=== PATIENT | male | born 1975 | race Hispanic/Latino ===

== ENCOUNTER 2018-02-01 19:58 | Inpatient (IN) | payer SELFPAY ==
[2018-02-01 21:22] LABS: #Basophils 0.1 thou/uL (0.0-0.2); #Lymphocytes 1.8 thou/uL (1.20-3.40); #Monocytes 1.1 thou/uL (0.11-0.59); #Neutrophils 9.3 thou/uL (1.40-6.50); %Basophils 0.4 % (0.0-1.0); %Eosinophils 0.4 % (0.0-10.0); %Lymphocytes 14.6 % (21.0-51.0); %Monocytes 8.8 % (0.0-10.0); %Neutrophils 75.8 % (42.0-75.0); Mean Corpuscular HGB CONC 33.5 g/dL (32.0-36.0); Mean Corpuscular Hemoglobin 27.9 pg (27.0-31.0); Mean Corpuscular Volume 83.4 fl (80.0-94.0); Mean Platelet Volume 8.4 fL (7.4-10.4); Platelet Count 261 thou/uL (130-400); RBC Distribution Width 11.6 % (11.5-14.5); Red Blood Cell (RBC) Count 4.67 mill/uL (4.70-6.10); White Blood Cell (WBC) Count 12.3 thou/uL (4.8-10.8)
[2018-02-01] MEDS ORDERED: Morphine 4 MG/ML VIAL ONE (21:40)
[2018-02-01] MEDS ORDERED: Ondansetron ODT 4 MG TAB ONE (21:40)
[2018-02-01] MEDS ORDERED: Ibuprofen 200 MG TAB ONE (21:42)
[2018-02-01] MEDS ORDERED: Acetaminophen 500 MG TAB ONE (21:42)
[2018-02-01 21:43] LABS: ALT (SGPT) 35 U/L (8-55); AST (SGOT) 21 U/L (5-34); Albumin 3.9 g/dL (3.5-5.0); Alkaline Phosphatase 181 U/L (40-150); Anion Gap 14 mmol/L (10-20); BUN (Urea Nitrogen) 14 mg/dL (8.9-20.6); Bilirubin, Total 1.2 mg/dL (0.2-1.2); Calc. Creatinine Clearance 0 mL/min (70-130); Calcium 9.9 mg/dL (7.8-10.44); Carbon Dioxide 28 mmol/L (22-29); Chloride 97 mmol/L (98-107); Estimated GFR-MDRD 77; Glucose 127 mg/dL (70-105); Potassium 3.4 mmol/L (3.5-5.1); Protein, Total 7.9 g/dL (6.0-8.3); Sodium 136 mmol/L (136-145)
[2018-02-01 21:46] LABS: CKMB 0.6 ng/mL (0-6.6); Troponin I Less than 0.010 ng/mL (< 0.028)
[2018-02-01 21:58] LABS: Lactic Acid 1.6 mmol/L (0.5-2.2)
[2018-02-01 22:00] LABS: Bilirubin Negative (Negative); Blood, Urine Negative (Negative); Clarity CLEAR (Clear); Glucose, Urine (Dipstick) Negative (Negative); Leukocyte Trace (Negative); Nitrite Negative (Negative); Protein, Urine (Dipstick) 30 mg/dL (Neg-Trace); Specific Gravity, Urine 1.019 (1.002-1.036); Urobilinogen > or = 8.0 mg/dL (0.2-1.0); pH, Urine 7.5 (5.0-9.0)
[2018-02-01 22:02] LABS: Bacteria/HPF None Seen HPF (None Seen); Hyaline Casts/LPF 0-3 HYALINE CAST LPF (0-3 Hyaline); Pathc Cast-AUWi Flag 0.14 (0-2.49); RBC/HPF 0-3 HPF (0-3); Squamous Epithelial 0-3 HPF (0-3); WBC/HPF 0-3 HPF (0-3)
[2018-02-01] MEDS ORDERED: Piperacillin/Tazobactam 4.5 GM VIAL ONE (22:17)
--- NOTE | 2018-02-01 22:23 | RAD ---
PORTABLE CHEST ONE VIEW: 02/01/18 at 9:53 p.m. HISTORY: Cough with streaks of blood. FINDINGS: The heart size is normal. There is consolidation in the right lower lung. No pneumothorax or pleural effusions are seen. IMPRESSION: Right sided pneumonia. POS: [facility]
[2018-02-01] MEDS ORDERED: guaiFENesin 100 MG/5 ML UDCUP PO PRN (23:35)
[2018-02-01] MEDS ORDERED: Sodium Chloride 0.9% 1,000 ML IV SCH (23:45)
[2018-02-02] MEDS: Sodium Chloride 0.9% 1,000 ML IV SCH ×3 (00:38→23:24)
[2018-02-02 01:04] VITALS: BMI 31.2
[2018-02-02 02:17] LABS: Legionella Urinary Ag Negative (Negative); Strep pneumo Urine Ag NEGATIVE (NEGATIVE)
--- NOTE | 2018-02-02 03:00 | HP ---
DATE OF ADMISSION: 02/01/2018 PRIMARY CARE PHYSICIAN: Molly PCP. CHIEF COMPLAINT: Shortness of breath. HISTORY OF PRESENT ILLNESS: Patient is a very pleasant 42-year-old male with no significant past med ical history who presents to the hospital, complaints of worsening shortness of breath and lightheade dness. Patient stated that for the past few days, he has been having nausea, vomiting, and decreased appetite. Patient stated that he also has been having cough for the past 2-3 weeks. Patient stated that his temperature at home was 100.9. Patient states that he has been taking [id number] med ications without any relief. Patient stated that he has not been able to eat or drink very much. To night his symptoms worsened, worsening nausea, vomiting, and some lightheadedness which concerned him and so he came to the ER for further evaluations. PAST MEDICAL HISTORY: Denies any significant past medical history. MEDICATIONS: He takes none. ALLERGIES: He has no known drug allergies. FAMILY HISTORY: He has got no significant family history of heart disease or diabetes. SOCIAL HISTORY: He drinks occasionally some alcohol, denies any drugs or smoking history. PAST SURGICAL HISTORY: Denies any surgical history. REVIEW OF SYSTEMS: The following complete review of systems was all negative except for the ones men tioned above in the HPI: Constitutional: Weight loss or gain, ability to conduct usual activities. Skin: Rash, itching. Eyes: Double vision, pain. ENT/Mouth: Nose bleeding, neck stiffness, pain, tenderness. Cardiovascular: Palpitations, dyspnea on exertion, orthopnea. Respiratory: Shortness of breath, wheezing, cough, hemoptysis, fever, or night sweats. Gastrointestinal: Poor appetite, a bdominal pain, heartburn, nausea, vomiting, constipation, or diarrhea. Genitourinary: Urgency, freq uency, dysuria, nocturia. Musculoskeletal: Pain, swelling. Neurologic/Psychiatric: Anxiety, depre ssion. Allergy/Immunologic: Skin rash, bleeding tendency. PHYSICAL EXAMINATION: VITAL SIGNS: Temperature of 99.8, however, there was one temperature of 102.4, blood pressure 109/55 , respirations are 16, 93% on room air, 92 pulse. GENERAL: He is awake, alert, oriented x3, does not appear in distress. CARDIOVASCULAR: S1, S2 present. No murmurs, rubs, or gallops. This patient does have reproducible chest pain upon pushing his right lower ribcage area. ABDOMEN: Soft, nontender. Bowel sounds are present x2. LUNGS: Clear to auscultation. No rhonchi or wheezes noted. EXTREMITIES: No pitting edema. Pedal pulses are present x2. LABORATORY DATA: Are as the following, he has a CBC indicates count of 12.3, hemoglobin of 13.0, hem atocrit of 38.9. No bands are noted. His BMP: Sodium of 136, potassium of 3.4, chloride of 97, BUN of 14, creatinine 1.06 and his UA had indicated high-protein and trace leukocytes. Chest x-ray appe ars to have his current right-sided pneumonia. ASSESSMENT AND PLAN: Patient is a very pleasant 42-year-old male who comes to the hospital with mult iple complaints. 1. Right-sided pneumonia. We will start patient on antibiotics for community-acquired pneumonia, Le vaquin. We will start patient on some DuoNebs. We will give patient's some cough suppressant. Guillermina ent did state that he took 3 days of amoxicillin when he was at home, which did not really help him v michelle much. We will check Strep pneumo urine antigen and Legionella urine antigen. Continue to monito r. 2. Sepsis, most likely secondary to problem #1. We will start the patient on gentle hydration. We will give a normal saline 1-liter bolus and continue to monitor. 3. Mildly elevated leukocytosis, most likely secondary to his #1 problem. 4. Deep venous thrombosis prophylaxis. We will put patient on subcutaneous heparin.
[2018-02-02 07:15] LABS: #Eosinphils 0.1 thou/uL (0.0-0.7); #Lymphocytes 1.8 thou/uL (1.20-3.40); #Monocytes 1.2 thou/uL (0.11-0.59); #Neutrophils 7.4 thou/uL (1.40-6.50); %Basophils 0.3 % (0.0-1.0); %Eosinophils 1.3 % (0.0-10.0); %Lymphocytes 16.6 % (21.0-51.0); %Monocytes 11.6 % (0.0-10.0); %Neutrophils 70.1 % (42.0-75.0); Hemoglobin 11.9 g/dL (14.0-18.0); Mean Corpuscular HGB CONC 33.8 g/dL (32.0-36.0); Mean Corpuscular Hemoglobin 28.2 pg (27.0-31.0); Mean Corpuscular Volume 83.5 fl (80.0-94.0); Mean Platelet Volume 8.1 fL (7.4-10.4); Platelet Count 221 thou/uL (130-400); RBC Distribution Width 11.6 % (11.5-14.5); White Blood Cell (WBC) Count 10.6 thou/uL (4.8-10.8)
[2018-02-02 07:25] LABS: Anion Gap 11 mmol/L (10-20); BUN (Urea Nitrogen) 12 mg/dL (8.9-20.6); Calc. Creatinine Clearance 117 mL/min (70-130); Calcium 8.5 mg/dL (7.8-10.44); Carbon Dioxide 27 mmol/L (22-29); Chloride 106 mmol/L (98-107); Estimated GFR-MDRD Greater than 90; Glucose 120 mg/dL (70-105); Potassium 3.7 mmol/L (3.5-5.1); Sodium 140 mmol/L (136-145)
[2018-02-02] MEDS: Heparin 5,000 UNITS/ML VIAL SC SCH ×3 (08:32→20:07)
[2018-02-02] MEDS: Famotidine 40 MG/4 ML VIAL SLOW IVP SCH ×2 (08:32→20:06)
--- NOTE | 2018-02-02 11:07 | PDOC.PN ---
- Subjective Encounter Start Date: 02/02/18 Encounter Start Time: 11:06 Patient seen and examined, states he feels better but still has some pain in the right mid chest region axillary line. No other issues or complaints, all questions answered. - Objective Resuscitation Status: Resuscitation Status FULL:Full Resuscitation Vital Signs & Weight: Vital Signs (12 hours) Temp Pulse Resp BP Pulse Ox 02/02/18 08:00 98.0 F 76 16 98 02/02/18 07:33 74 16 98 02/02/18 07:00 98.0 F 76 16 121/61 98 02/02/18 02:25 78 16 100 02/02/18 01:13 98.4 F 80 20 99 02/02/18 00:08 98.4 F 80 20 109/64 99 Weight Weight 171 lb I&O: 02/01/18 02/02/18 02/03/18 06:59 06:59 06:59 Intake Total 543 Output Total 750 Balance -207 Result Diagrams: 02/02/18 06:41 02/02/18 06:41 Phys Exam - Physical Examination Constitutional: NAD HEENT: PERRLA, moist MMs, sclera anicteric Neck: no nodes, no JVD, supple Respiratory: no wheezing, no rales, no rhonchi Cardiovascular: RRR, no significant murmur, no rub Gastrointestinal: soft, non-tender, no distention Musculoskeletal: no edema, pulses present Neurological: non-focal, normal sensation Dx/Plan (1) Pneumonia involving right lung Code(s): J18.9 - PNEUMONIA, UNSPECIFIED ORGANISM Status: Acute (2) Acute renal failure Status: Acute (3) Rhabdomyolysis Code(s): M62.82 - RHABDOMYOLYSIS Status: Acute - Plan * renal function improving * cont abx and IVFs for now * repeat labs in AM * if renal function improving and patient feeling better will likely DC patient in AM * case and plan d/w [facility], in panamanian he understands and agrees with this plan
[2018-02-02] MEDS: Diabetic Tussin 200 MG/10 ML UDCUP PO PRN ×3 (13:25→20:21)
[2018-02-02] MEDS: Acetaminophen 325 MG TAB PO PRN ×2 (15:04→20:07)
[2018-02-03] MEDS: Diabetic Tussin 200 MG/10 ML UDCUP PO PRN ×4 (02:28→23:50)
[2018-02-03] MEDS: Heparin 5,000 UNITS/ML VIAL SC SCH ×3 (09:05→21:08)
[2018-02-03] MEDS: Famotidine 40 MG/4 ML VIAL SLOW IVP SCH ×2 (09:18→21:07)
--- NOTE | 2018-02-03 10:02 | RAD ---
PORTABLE CHEST 1 VIEW: Date: 02/03/18 Time: 0918 hours HISTORY: Pneumonia. FINDINGS: Comparison made with exam of 02/01/18. There is interval worsening of the consolidation in the right lower lung since the previous study. Th e heart size is normal. The left lung is clear. IMPRESSION: Right side pneumonia. POS: [facility]
--- NOTE | 2018-02-03 11:42 | PDOC.PN ---
- Subjective Encounter Start Date: 02/03/18 Encounter Start Time: 11:40 Patient seen and examined, states he has improvement in his breathing but his pain is now not just right axxilary line but also epigastric, no other issues or complaints. Family at bedside, all questions answered. - Objective Resuscitation Status: Resuscitation Status FULL:Full Resuscitation Vital Signs & Weight: Vital Signs (12 hours) Temp Pulse Resp BP Pulse Ox 02/03/18 10:04 85 18 97 02/03/18 08:00 99.3 F 85 18 97 02/03/18 07:49 99.3 F 85 20 115/55 L 95 02/03/18 05:54 88 14 97 02/03/18 02:11 82 16 98 02/03/18 01:52 96 Weight Weight 171 lb I&O: 02/02/18 02/03/18 02/04/18 06:59 06:59 06:59 Intake Total 543 3221 240 Output Total 750 Balance -207 3221 240 Result Diagrams: 02/02/18 06:41 02/02/18 06:41 Phys Exam - Physical Examination Constitutional: NAD HEENT: PERRLA, moist MMs, sclera anicteric Neck: no nodes, no JVD, supple decreased breath sounds righ tmiddle lobe no respiratory distress Cardiovascular: RRR, no significant murmur, no rub Gastrointestinal: soft, non-tender, no distention Musculoskeletal: no edema, pulses present Dx/Plan (1) Pneumonia involving right lung Code(s): J18.9 - PNEUMONIA, UNSPECIFIED ORGANISM Status: Acute (2) Acute renal failure Status: Acute (3) Rhabdomyolysis Code(s): M62.82 - RHABDOMYOLYSIS Status: Acute - Plan * bacillus on culture, repeat culture * cont levaquin * CXR shows worsening pneumonia, will consult pulmonary for assistance * continue current plan of care with no changes for now * will obtain CT scan of Chest as well * case and plan d/w patient at [facility], in [place], they understand and agree with this plan
--- NOTE | 2018-02-03 12:58 | CON ---
DATE OF CONSULTATION: 02/03/2018 HISTORY: A 42-year-old gentleman who admitted on 02/01/2018, I was consulted 02/04/20 18 regarding right-sided pneumonia. He speaks no Azeri. His is at the bedside and states he has been having cough for the last several weeks, fever and chills. Sputum is relatively clear. Thi s morning he is coughing some discolored sputum. Apparently he is a nonsmoker, no alcohol abuse, no tobacco abuse, no substance abuse. PAST MEDICAL HISTORY: Unremarkable for any major medical problems, diabetes, hypertension. PAST SURGICAL HISTORY: None. SOCIAL HISTORY: He does construction work. CHRONIC MEDICATIONS: None. ALLERGIES: None. FAMILY HISTORY: Unremarkable. No pets. REVIEW OF SYSTEMS: Ten point negative. PHYSICAL EXAMINATION: VITAL SIGNS: Sats 97% on room air, respiration 18, temperature 99.3, pulse 85, blood pressure 120/55 . CHEST: Chest reveals decreased breath sounds, no wheezing or crackles. CARDIAC: Normal S1, S2, no gallops. ABDOMEN: Soft, without masses. NEUROLOGIC: Unremarkable. EXTREMITIES: No edema. LABORATORY: Blood culture, basilar species, not Anthrax, probably is a contamination. His chest x-ray shows a right mid chest pneumonia. I do not see obvious pleural effusion. IMPRESSION: Community-acquired pneumonia in a nonsmoker. PLAN: Levaquin should be more than adequate. I am going to try and get a sputum culture if possible . I will follow. If he becomes afebrile, suggest switching him over to oral antibiotics. This is a 70 minute consultation, which 50% time spent in direct patient care.
[2018-02-03] MEDS ORDERED: Iopamidol 370 76% 100 ML VIAL ONE (14:12)
--- NOTE | 2018-02-03 14:52 | CT ---
CT THORAX WITH IV CONTRAST: Indication: Abnormal chest radiograph. Evaluate for pneumonia. Comparison: Prior radiograph dated 02-03-18. FINDINGS: There is prominent airspace consolidation seen within the right middle lobe. There is debris seen wit hin the right middle lobe bronchi. There is an enlarged right infrahilar lymph node measuring 1.3 cm. There is a small right pleural effusion. There is right basilar atelectasis. There are patchy reticu lar and ground glass opacities within the superior segment of the right lower lobe. Left lung is hayley r. No suspicious osseous lesion is identified. IMPRESSION: 1. Prominent consolidation in the right middle lobe suspicious for pneumonia. There is some debris pr esent within the right middle lobe bronchus. It is difficult to exclude the presence of a right hilar mass due to the extent of the consolidation. No visible enhancing mass is grossly evident. There is an enlarged right infrahilar lymph node measuring up to 1.3 cm which may be reactive in nature. There is additional ground glass and reticular air opacity seen within the superior segment of the right l ower lobe, suspicious for an additional area of infection. Followup CT after antibiotic therapy liam mmended to document resolution. 2. Small right sided effusion with right basilar atelectasis. 3. Multiple bilateral renal cysts. 4. Calcified granuloma within the spleen likely related to prior granulomatous disease. POS: [facility]
[2018-02-03] MEDS: Sodium Chloride 0.9% 1,000 ML IV SCH (16:48)
[2018-02-03] MEDS: Temazepam 15 MG CAP PO PRN (22:21)
[2018-02-04] MEDS: Sodium Chloride 0.9% 1,000 ML IV SCH ×2 (05:25→20:27)
[2018-02-04] MEDS: Diabetic Tussin 200 MG/10 ML UDCUP PO PRN (08:10)
[2018-02-04] MEDS: Heparin 5,000 UNITS/ML VIAL SC SCH ×3 (08:11→20:27)
--- NOTE | 2018-02-04 10:04 | PRG ---
DATE OF SERVICE: 02/04/2018 This morning he is better, he is coughing, but no productive sputum. PHYSICAL EXAMINATION: VITAL SIGNS: Sats 100% room air, temperature is still 99, pulse 88, respirations 14, blood pressure 122/62. CHEST: Chest reveals decreased breath sounds right lung. CARDIAC: Normal S1-S2. No gallops. ABDOMEN: Soft. No masses. IMPRESSION: Right middle lobe pneumonia, small pleural effusion, community-acquired, probably Strept ococcus pneumonia. PLAN: May continue IV antibiotics for another 24 hours. Once he is afebrile switch him over to oral Levaquin. Follow chest x-ray in a couple of days. Obviously, if the effusion gets larger, may consider a thoracentesis.
--- NOTE | 2018-02-04 11:43 | PDOC.PN ---
- Subjective Encounter Start Date: 02/04/18 Encounter Start Time: 11:42 Patient seen and examined, continues ot have bouts of dry cough but better than before, no other issues or complaints. - Objective Resuscitation Status: Resuscitation Status FULL:Full Resuscitation Vital Signs & Weight: Vital Signs (12 hours) Temp Pulse Resp BP Pulse Ox 02/04/18 09:25 80 14 96 02/04/18 08:00 99.1 F 80 14 93 L 02/04/18 07:37 99.1 F 79 18 123/62 93 L 02/04/18 05:57 91 16 97 02/04/18 01:50 87 18 96 Weight Weight 171 lb I&O: 02/03/18 02/04/18 02/05/18 06:59 06:59 06:59 Intake Total 3221 660 Balance 3221 660 Result Diagrams: 02/02/18 06:41 02/02/18 06:41 Phys Exam - Physical Examination Constitutional: NAD HEENT: PERRLA, moist MMs, sclera anicteric Neck: no nodes, no JVD, supple Respiratory: no wheezing, no rales, no rhonchi Cardiovascular: RRR, no significant murmur, no rub Gastrointestinal: soft, non-tender, no distention Musculoskeletal: no edema, pulses present Neurological: non-focal, normal sensation, moves all 4 limbs Dx/Plan (1) Pneumonia involving right lung Code(s): J18.9 - PNEUMONIA, UNSPECIFIED ORGANISM Status: Acute (2) Acute renal failure Status: Acute (3) Rhabdomyolysis Code(s): M62.82 - RHABDOMYOLYSIS Status: Acute - Plan * cont abx * sputum culture possibly if obtainable * labs improving * possible DC in AM if patient feeling well * tessalon pearls for cough * case and plan d/w patient in hungarian, he understands and agrees with cosme prescott
[2018-02-04] MEDS: Benzonatate 100 MG CAP PO PRN ×2 (12:11→20:26)
[2018-02-04] MEDS: Famotidine 40 MG/4 ML VIAL SLOW IVP SCH ×2 (12:12→20:27)
[2018-02-04] MEDS: Temazepam 15 MG CAP PO PRN (20:31)
[2018-02-04] MEDS: Acetaminophen 325 MG TAB PO PRN (21:26)
[2018-02-05] MEDS: Benzonatate 100 MG CAP PO PRN ×3 (04:00→20:25)
[2018-02-05] MEDS: Sodium Chloride 0.9% 1,000 ML IV SCH (08:20)
[2018-02-05] MEDS: Heparin 5,000 UNITS/ML VIAL SC SCH ×3 (08:21→20:29)
[2018-02-05] MEDS: Diabetic Tussin 200 MG/10 ML UDCUP PO PRN ×2 (08:23→18:00)
--- NOTE | 2018-02-05 08:48 | PRG ---
DATE OF SERVICE: 02/05/2018 This morning he is awake, alert, responsive. PHYSICAL EXAMINATION: VITAL SIGNS: Temperature 97, pulse is 86, respirations 16, O2 sats 93% on room air, much better. Bl ood pressure 152/58. CHEST: No cough. ____ negative. Chest revealed decreased breath sounds in the right lung. Left tabitha ng unremarkable. CARDIAC: Normal S1, S2. ABDOMEN: Soft, no masses. IMPRESSION: 1. Right-sided pneumonia, community acquired. 2. Small pleural effusion. PLAN: He appears to have improved substantially. I will switch him over to oral antibiotics. X-ray shows resolution of the pneumonia. Probably could be discharged home tomorrow on oral antibiotics.
[2018-02-05] MEDS: Temazepam 15 MG CAP PO PRN (20:25)
--- NOTE | 2018-02-05 21:10 | PDOC.PN ---
- Subjective Encounter Start Date: 02/05/18 Encounter Start Time: 11:00 Patient seen and examined for Sepsis/Pneumonia. Productive cough +. No overnight events - Objective Resuscitation Status: Resuscitation Status FULL:Full Resuscitation MAR Reviewed: Yes Vital Signs & Weight: Vital Signs (12 hours) Temp Pulse Resp BP Pulse Ox 02/05/18 20:00 98.2 F 95 18 127/74 93 L 02/05/18 19:12 73 16 96 02/05/18 11:41 85 16 96 Weight Weight 171 lb I&O: 02/04/18 02/05/18 02/06/18 06:59 06:59 06:59 Intake Total 660 1500 1720 Output Total 200 Balance 660 1500 1520 Result Diagrams: 02/02/18 06:41 02/02/18 06:41 Radiology Reviewed by me: Yes (CT chest - Rt sided Pneumonia) Phys Exam - Physical Examination Intermittent coughing spells Respiratory: wheezing present Rt sided rales with dec AE, Scat rhonchi Cardiovascular: RRR, no rub no heaves/pulsation Gastrointestinal: soft, non-tender, no distention, positive bowel sounds Musculoskeletal: no edema Neurological: non-focal, moves all 4 limbs Psychiatric: normal affect, A&O x 3 Dx/Plan - Plan continue antibiotics, DVT proph w/SCDs IMPRESSION: 1. Sepsis due to pneumonia. 2. Pleural effusion 3. Obesity BMI 31.3 4. Leukocytosis due to #1 PLAN: * Cont Levaquin * Repeat CXR in AM * DC planning Review of Systems - Review of Systems Cardiovascular: negative: chest pain, palpitations, orthopnea, paroxysmal nocturnal dyspnea, edema, light headedness, other Gastrointestinal: negative: Nausea, Vomiting, Abdominal Pain, Diarrhea, Constipation, Melena, Hematochezia, Other - Medications/Allergies Allergies/Adverse Reactions: Allergies Allergy/AdvReac Type Severity Reaction Status Date / Time No Known Drug Allergies Allergy Verified 02/02/18 01:12 Medications: Current Medications Acetaminophen (Tylenol) 650 mg PO Q4H PRN PRN Reason: Headache/Fever or Pain Last Admin: 02/04/18 21:26 Dose: 650 mg Albuterol/Ipratropium (Duoneb) 3 ml NEB TID-RT TISH Last Admin: 02/05/18 19:12 Dose: 3 ml Benzonatate (Tessalon) 100 mg PO TIDPRN PRN PRN Reason: Cough Last Admin: 02/05/18 20:25 Dose: 100 mg Guaifenesin (Robitussin Sf) 200 mg PO Q4H PRN PRN Reason: Cough Last Admin: 02/05/18 18:00 Dose: 200 mg Heparin Sodium (Porcine) (Heparin) 5,000 units SC TID TISH Last Admin: 02/05/18 20:29 Dose: 5,000 units Levofloxacin (Levaquin) 750 mg PO 0600 TISH Stop: 02/13/18 06:01 Sodium Chloride (Flush - Normal Saline) 10 ml IVF Q12HR TISH Last Admin: 02/05/18 08:22 Dose: 10 ml Sodium Chloride (Flush - Normal Saline) 10 ml IVF PRN PRN PRN Reason: Saline Flush Temazepam (Restoril) 15 mg PO HS PRN PRN Reason: Insomnia Last Admin: 02/05/18 20:25 Dose: 15 mg
[2018-02-06] MEDS: Benzonatate 100 MG CAP PO PRN (05:29)
[2018-02-06] MEDS: Acetaminophen 325 MG TAB PO PRN (05:29)
--- NOTE | 2018-02-06 08:13 | RAD ---
TWO VIEW CHEST: Comparison: 02-03-18 Clinical history: Pneumonia. FINDINGS: Re-demonstration of moderate sized region of opacification at the right middle lobe. Finding demonstr ates wedge shaped configuration compatible with lobar collapse of the right middle lobe which raises suspicion for a central obstructing lesion. No obvious effusion. No discrete pneumothorax. Cardiac si lhouette is within normal limits in size. IMPRESSION: Right middle lobe collapse, which raises suspicion for a central obstructing lesion. Recommend follow up with bronchoscopy as well as continued imaging follow up. Code T POS: [facility]
[2018-02-06] MEDS: Diabetic Tussin 200 MG/10 ML UDCUP PO PRN (08:53)
[2018-02-06] MEDS: Heparin 5,000 UNITS/ML VIAL SC SCH (08:53)
--- NOTE | 2018-02-06 09:17 | PRG ---
DATE OF SERVICE: 02/06/2018 This is a 42-year-old gentleman who remains afebrile now for several days. PHYSICAL EXAMINATION: VITAL SIGNS: Sats are 96% on room air, respiration 14, pulse 69, blood pressure 127/74. CHEST: Chest reveals decreased breath sounds in the right lung without any wheezing or crackles. CARDIAC: Normal S1, S2, no gallops. X-ray today shows bilateral pneumonia. His CAT scan showed air bronchograms suggestive more than lik chema does not have an obstruction there. IMPRESSION: 1. Right middle lobe pneumonia, probably community-acquired Streptococcus, although all cultures are negative. PLAN: He can be discharged home on Levaquin for another 5 days. He can see me in the office in 2 we eks with a chest x-ray. Obviously if the density persists, may consider bronchoscopy at that time. He is a nonsmoker. I see no reason at this stage to do an urgent bronchoscopy.
--- NOTE | 2018-02-06 11:47 | DIS ---
DATE OF DISCHARGE: 02/06/2018 DISCHARGE DISPOSITION: Home. FOLLOWUP: 1. Follow up with [facility] in 1 week. 2. Follow up with Dr. Olson in 2 weeks with a chest x-ray. DISCHARGE MEDICATIONS: 1. Mucinex 600 mg twice a day for the next 10 days. 2. Levaquin 750 mg daily for the next 5 days. INPATIENT CONSULTANTS: Pulmonary, Dr. Olson. SIGNIFICANT LABORATORY DATA: 1. WBC on admission 12.3, repeat was 10.6. 2. Potassium 3.4, repeat potassium 3.7. 3. Streptococcus pneumonia and legionella urinary antigens were negative. 4. Blood cultures / was positive for bacillus probably contaminant. 5. Chest x-ray on admission showed right-sided pneumonia. 6. CT scan of the chest showed prominent consolidation in the right middle lobe suspicious for pneum onia. There was small right-sided effusion with right basilar atelectasis with multiple bilateral re nal cysts. BRIEF HOSPITAL COURSE: The patient is a 42-year-old male, who presented to the hospital with shortne ss of breath, cough, and wheezing. Please refer to the history and physical dated 02/01/2018 for fur ther details. His temperature in the emergency room was 101.6 with a pulse rate of 100, blood pressu re 114/69. The patient was admitted to the medical floor with a diagnosis of right-sided pneumonia. He was star kathryn on Levaquin along with nebulizer treatment with good improvement. The patient has been afebrile over the last 48 hours. His blood cultures so far have been negative. The patient was evaluated by Pulmonary, Dr. Olson. Dr. Olson recommended to continue Levaquin for another 5 days. He will follow u p with Dr. Olson in 2 weeks for a chest x-ray. He will decide at that time if patient needs bronchosc opy or not. He has been cleared by Pulmonary for discharge. FINAL DIAGNOSES: 1. Sepsis secondary to community-acquired pneumonia. 2. Hypokalemia, corrected. 3. Obesity with a BMI 31.3. 4. Dehydration on admission, resolved. 5. Chronic anemia. Primary care physician advised to follow. 6. Leukocytosis secondary to pneumonia. 7. Small right-sided pleural effusion secondary to pneumonia. Plan of care was discussed with the patient in detail. He stated understanding.
[2018-02-06 13:51] VITALS: BP 114/62; TEMP 98.6
== END 2018-02-06 13:15 | disposition home or self-care (01) | DRG 871 ==
LOC: ERS 19:58 → T4-B 22:45
PROVIDERS: ADMIT Internal Medicine; ATTEND Internal Medicine
DX: A41.9 Sepsis, unspecified organism (principal); J18.9 Pneumonia, unspecified organism; J91.8 Pleural effusion in other conditions classified elsewhere; N17.9 Acute kidney failure, unspecified; M62.82 Rhabdomyolysis; J98.11 Atelectasis; E66.9 Obesity, unspecified; Z68.31 Body mass index [BMI] 31.0-31.9, adult; R09.02 Hypoxemia; N28.1 Cyst of kidney, acquired; E87.6 Hypokalemia; E86.0 Dehydration; D64.9 Anemia, unspecified
CPT/HCPCS: 36415; 71045; 71046; 71260; 80048; 80053; 81003; 81015; 82553; 83605; 84484; 85025; 87040; 87070; 87205; 87899; 93005; 94640; 96365; 96367; 96375; A4216; J1644; J1956; J2270; J2543; J3370; J7620; Q0162

== ENCOUNTER 2020-06-24 16:37 | Emergency (ER) | payer SELFPAY ==
[2020-06-24] MEDS ORDERED: Ketorolac Tromethamine 30 MG/ML VIAL ONE (17:16)
--- NOTE | 2020-06-24 17:35 | RAD ---
XR Knee Lt 4 View STANDARD History: Pain Comparison: None. Findings: Moderate free patellar and pretibial soft tissue swelling. No acute fracture or malalignmen t. No significant knee joint effusion. Small enthesophyte quadriceps tendon insertion. Impression: Moderate pretibial prepatellar soft tissue swelling can be seen with bursitis. No underly ing osseous abnormality.
== END 2020-06-24 18:18 | disposition home or self-care (01) ==
LOC: ERS 16:37
DX: M25.562 Pain in left knee (principal)
CPT/HCPCS: 96372; J1885

== ENCOUNTER 2021-01-06 15:41 | Emergency (ER) | payer SELFPAY ==
[2021-01-06] MEDS ORDERED: Famotidine 20 MG TAB ONE (16:31)
[2021-01-06] MEDS ORDERED: Dexamethasone 10 MG/ML VIAL ONE (16:31)
[2021-01-06] MEDS ORDERED: diphenhydrAMINE 50 MG CAP ONE (16:31)
== END 2021-01-06 16:48 | disposition home or self-care (01) ==
LOC: ERS 15:41
DX: L50.9 Urticaria, unspecified (principal)
CPT/HCPCS: 99282; J1100

== ENCOUNTER 2022-04-25 19:07 | Emergency (ER) | payer OTHER, SELFPAY ==
[2022-04-25] MEDS ORDERED: HYDROcodone/Acetaminophen 5/325 mg Tablet ONE (21:04)
== END 2022-04-25 22:02 | disposition home or self-care (01) ==
LOC: ERS 19:07
DX: S46.212A Strain of muscle, fascia and tendon of other parts of biceps, left arm, initial encounter (principal); X50.9XXA Other and unspecified overexertion or strenuous movements or postures, initial encounter; Y93.89 Activity, other specified; Y92.69 Other specified industrial and construction area as the place of occurrence of the external cause